=== PATIENT | female | born 1940 | race Caucasian/White ===

== ENCOUNTER → 2017-04-12 | Outpatient (CLI) | payer MEDICARE, BC ==
--- NOTE | 2017-04-12 16:54 | BD ---
EXAMINATION TYPE: MG DEXA axial skeleton. DATE OF EXAM: 04/12/2017 COMPARISON: NONE CLINICAL HISTORY: 76-year-old female osteoporosis Height: 5 FT 2 IN Weight: 174 FRAX RISK QUESTIONS: Alcohol (3 or more units per day): NO Family History (Parent hip fracture): NO Glucocorticoids (More than 3mos): NO (Ex: prednisone, prednisolone, methylprednisolone, dexamethasone, and hydrocortisone). History of Fracture in Adulthood: NO Secondary Osteoporosis: 1. Type 1 Diabetes: NO 2. Hyperthyroidism: NO 3. Menopause before 45: NO 4. Malnutrition: NO 5. Chronic liver disease: NO Rheumatoid Arthritis: NO Current Tobacco Use: NO RISK FACTORS HISTORY OF: Active: YES Postmenopausal woman: AGE 51 MEDICATIONS: Additional Medications: LIPITOR, BLOOD PRESSURE MEDS, Additional History: EXAM MEASUREMENTS: Bone mineral densitometry was performed using the [employer] System. Bone mineral density as measured about the Lumbar spine is: ----- L1-L4(G/cm2): 0.997 T Score Values are as follows: ----- L2: -2.0 ----- L3: -1.6 ----- L4: -0.8 ----- L1-L4: -1.5 Bone mineral density has: DECREASED -0.9 % since study of: 2014 Bone mineral density about the R hip (g/cm2): 0.845 Bone mineral density about the L hip (g/cm2): 0.855 T Score values are as follows: -----R Neck: -1.4 -----L Neck: -1.3 -----R Total: -1.1 -----L Total: -0.7 Bone mineral density has: DECREASED -2.9 % since study of: 2014 IMPRESSION: Osteopenia (T Score between -2.5 and -1 as noted by T score values There is slightly increased risk of fracture and the patient may be considered for treatment. Re-Screen 2-5 years. NOTE: T-SCORE=SD OF THE YOUNG ADULT MEAN.
== END | disposition home or self-care (01) ==
LOC: RADBDWWP 09:54
PROVIDERS: ATTEND Internal Medicine Geriatric Medicine
DX: M85.80 Other specified disorders of bone density and structure, unspecified site (principal)
CPT/HCPCS: 77080

== ENCOUNTER 2017-08-21 16:30 | Emergency (ER) | payer MEDICARE, BC ==
[2017-08-21] MEDS ORDERED: ASPIRIN 81 MG PO STA (16:58)
--- NOTE | 2017-08-21 17:04 | ED ---
Chest Pain HPI - General Chief Complaint: Chest Pain Stated Complaint: Chest Pain, SOB Time Seen by Provider: 08/21/17 16:39 Source: patient Mode of arrival: wheelchair Limitations: no limitations - History of Present Illness Initial Comments: This is a 76-year-old female to history of hypertension and hyperlipidemia, DT, breast cancer presents emergency department for chest pain. She states is been intermittent for the last 2-3 days. She states that it first started after working out at the gym. She states that she was working out and did multiple exercises including weightlifting and treadmill and did not have any symptoms however after she was done working out she developed some right-sided chest pain. She states that it's a dull ache. It seemed to go away however the next day she noticed the pain returned and she also had some symptoms in her back. She does not describe it as a ripping sensation. She states that she did have some associated neck numbness however no discomfort. No diaphoresis, lightheadedness, or CPAP. No nausea or vomiting area does not have a history of CAD. Had a full cardiac workup 6 years ago that was negative. Currently does not have any chest pain at all. Wanted to get evaluated because of the symptoms. - Related Data Home Medications Medication Instructions Recorded Confirmed Aspirin 81 mg PO HS 08/21/17 08/21/17 Atorvastatin Calcium [Lipitor] 10 mg PO HS 08/21/17 08/21/17 Metoprolol Tartrate [Lopressor] 25 mg PO HS 08/21/17 08/21/17 Allergies Allergy/AdvReac Type Severity Reaction Status Date / Time No Known Allergies Allergy Verified 08/21/17 17:04 Review of Systems ROS Statement: Those systems with pertinent positive or pertinent negative responses have been documented in the HPI. ROS Other: All systems not noted in ROS Statement are negative. EKG Findings - EKG Comments: EKG Findings:: EKG showing normal sinus rhythm with a 72. No abnormal ST segment changes or T-wave inversions. QTC is 407. No abnormal intervals. No ectopy. Past Medical History Past Medical History: Cancer, Hyperlipidemia, Hypertension, Pneumonia Additional Past Medical History / Comment(s): celine breast ca,nose and colon cancer History of Any Multi-Drug Resistant Organisms: None Reported Past Surgical History: Bowel Resection, Breast Surgery, Cholecystectomy, Hysterectomy Additional Past Surgical History / Comment(s): cancer removal from nose, masectomy Past Psychological History: No Psychological Hx Reported Smoking Status: Never smoker Past Alcohol Use History: None Reported Past Drug Use History: None Reported General Exam - General Exam Comments Initial Comments: Constitutional: Awake alert Appears comfortable Head: Normocephalic atraumatic Eyes: no conjunctival injection No scleral icterus EOMI Neck: No JVD Supple Heart: Regular rate rhythm normal S1-S2 no murmurs Lungs: Clear to auscultation bilaterally No wheezing No rales Abdomen: Soft nondistended nontender Extremities: Non edematous DP pulses intact Radial pulses intact Neuro: A&Ox3 No focal neurologic deficits Psych: Appropriate mood and affect Limitations: no limitations Course Vital Signs 08/21/17 08/21/17 16:34 16:54 Temperature 98.3 F Pulse Rate 89 97 Respiratory 20 20 Rate Blood Pressure 204/88 182/92 O2 Sat by Pulse 99 98 Oximetry Chest Pain MDM - MDM This is a 76-year-old female who presented to the emergency department for atypical chest pain. She describes it as a dull aching sensation in the right side of her chest. Did not radiate into the shoulders at all. She had no associated diaphoresis, nausea, or vomiting. Did not seem to be related to exercise at all. She had no symptoms while exercising a few days ago. The patient has 2 risk factors for CAD. No family history. No smoking. Her EKG was completely unremarkable. Troponin was negative. D-dimer negative. The rest her blood work is unremarkable as well. Chest x-ray negative. At this time I did recommend the patient that she stay in the hospital for further cardiac testing however she stated that she did not want to stay in the hospital. She stated that she would follow-up with Dr. Quinones as an outpatient and did not want to stay in the hospital for further cardiac testing. She does have a heart score of 3 and thus outpatient workup is reasonable however I did explain to the patient that she take significant risk leaving the hospital before getting further cardiac testing performed. She stated that she understood. She stated that she would return emergency Department if she had any worsening or changing symptoms. All questions were answered. Disposition Clinical Impression: Chest pain Disposition: HOME SELF-CARE Condition: Stable Instructions: Chest Pain (ED) Referrals: Paolo Quinones MD [Primary Care Provider] - 1-2 days
[2017-08-21 17:16] LABS: Basophils % (A) 1 %; Eosinophils # (A) 0.1 k/uL (0-0.7); Eosinophils % (A) 2 %; HCT 46.7 % (34.0-46.0); HGB 15.6 gm/dL (11.4-16.0); Lymphocytes # (A) 2.9 k/uL (1.0-4.8); Lymphocytes % (A) 36 %; MCHC 33.4 g/dL (31.0-37.0); Mean Platelet Volume 8.4; Monocytes # (A) 0.5 k/uL (0-1.0); Monocytes % (A) 6 %; Neutrophils # (A) 4.4 k/uL (1.3-7.7); Neutrophils % (A) 54 %; Platelet Count 240 k/uL (150-450); RBC 5.18 m/uL (3.80-5.40); RDW 12.9 % (11.5-15.5)
[2017-08-21 17:30] LABS: Albumin 4.2 g/dL (3.5-5.0); Calcium 10.3 mg/dL (8.4-10.2); Potassium 4.1 mmol/L (3.5-5.1); Total Bilirubin 0.7 mg/dL (0.2-1.3); Total Protein 7.1 g/dL (6.3-8.2)
[2017-08-21 17:34] LABS: Partial Thromboplastin Time 21.6 sec (22.0-30.0); Prothrombin Time 9.9 sec (9.0-12.0)
--- NOTE | 2017-08-21 17:34 | XR ---
EXAMINATION TYPE: XR chest 2V DATE OF EXAM: 08/21/2017 COMPARISON: 03/15/2013 HISTORY: Chest pain TECHNIQUE: Frontal and lateral views of the chest are obtained. FINDINGS: There is no heart failure nor confluent pneumonic infiltrate. Thoracic aorta is atheromato us. Bony thorax is intact. There are chest leads. IMPRESSION: No active cardiopulmonary disease. Normal heart. No change.
[2017-08-21 17:41] LABS: Creatine Kinase MB 1.1 ng/mL (0.0-2.4); Troponin I <0.012 ng/mL (0.000-0.034)
[2017-08-21 18:41] VITALS: BP 175/81; PULSE 65; RESP 18; TEMP 98.7
== END 2017-08-21 18:37 | disposition home or self-care (01) ==
LOC: EC 16:30
DX: R07.89 Other chest pain (principal); R20.0 Anesthesia of skin; E78.5 Hyperlipidemia, unspecified; I10 Essential (primary) hypertension; Z85.3 Personal history of malignant neoplasm of breast; Z85.038 Personal history of other malignant neoplasm of large intestine; Z85.89 Personal history of malignant neoplasm of other organs and systems; Z79.82 Long term (current) use of aspirin; Z79.899 Other long term (current) drug therapy
CPT/HCPCS: 36415; 71046; 80053; 82553; 84484; 85025; 85379; 85610; 85730; 93005; 99285

== ENCOUNTER → 2019-01-13 | Outpatient (CLI) | payer MEDICARE, BC ==
--- NOTE | 2019-01-13 13:52 | XR ---
EXAMINATION TYPE: XR chest 2V DATE OF EXAM: 01/13/2019 COMPARISON: Prior chest x-ray 08/21/2017 HISTORY: Cough TECHNIQUE: Frontal and lateral views of the chest are obtained. FINDINGS: There is no focal air space opacity, pleural effusion, or pneumothorax seen. The cardiac silhouette size is within normal limits. There are nena, metallic densities over the bilateral br easts as on prior. Aorta is dense. There is bronchial wall thickening. The osseous structures are int act. IMPRESSION: Correlate for bronchitis, reactive airways disease, follow-up as indicated.
== END | disposition home or self-care (01) ==
LOC: RADXRMAIN 13:04
PROVIDERS: ATTEND Internal Medicine Geriatric Medicine
DX: R05 Cough (principal)
CPT/HCPCS: 71046

== ENCOUNTER → 2019-01-31 | Outpatient (CLI) | payer MEDICARE, BC ==
--- NOTE | 2019-02-01 05:23 | CT ---
EXAMINATION TYPE: CT chest w con DATE OF EXAM: 01/31/2019 COMPARISON: 01/12/2012 and radiograph 01/13/2019 HISTORY: 78-year-old female Cough x4 months. Hx of breast/colon CA TECHNIQUE: Contiguous axial scanning of the chest after the administration of 100 mL of Isovue 300. Coronal/sagittal reconstructions performed. CT DLP: 388.5mGycm. Automatic exposure control utilized for a dose reduction. FINDINGS: Heart upper limits of normal in size without pericardial effusion. Scattered mild coronary vessel montrell cifications are present. Aorta normal caliber with conventional arch vessel branching anatomy and mild atherosclerotic arch ca lcifications. A large caliber to the main right and left pulmonary arteries and 2.9 and 2.6 cm, respectively, sugge sting underlying pulmonary arterial hypertension. No thoracic lymphadenopathy by CT size criteria. Some surgical clips at the left axilla and posterior left breast. Evaluation of the lungs shows a 4 mm subpleural pulmonary nodule peripheral right mid to lower lung, axial image 29, not seen previously and can be reassessed in 6-12 months. Strandy atelectasis or scar ring peripheral left base. No consolidation or pleural effusion. Visualized upper abdomen shows left renal cysts measuring up to 5.6 and 3.7 cm a tiny anterior splenu le. Bones: No osseous destructive process. IMPRESSION: 1. Strandy atelectasis or scarring at the peripheral left base. 2. Possible underlying pulmonary arterial hypertension. Clinically correlate. 3. 4 mm peripheral right mid to lower lung subpleural pulmonary nodule not seen previously in 2011. T his can be reassessed in 6-12 months. 4. Left renal cysts measuring up to 5.6 cm partially visualized.
== END | disposition home or self-care (01) ==
LOC: RADCTMAIN 16:16
PROVIDERS: ATTEND Internal Medicine Geriatric Medicine
DX: J40 Bronchitis, not specified as acute or chronic (principal)
CPT/HCPCS: 82565; 84520; 71260; 36415; Q9967

== ENCOUNTER → 2019-02-16 | Outpatient (CLI) | payer MEDICARE, BC ==
--- NOTE | 2019-02-17 10:59 | ECHOF ---
Referral Reason:I27.20 Pulmonary HTN MEASUREMENTS -------- HEIGHT: 154.9 cm WEIGHT: 79.8 kg BP: RVIDd: 2.0 cm (< 3.3) IVSd: 1.3 cm (0.6 - 1.1) LVIDd: 3.9 cm (3.9 - 5.3) LVPWd: 1.2 cm (0.6 - 1.1) IVSs: 1.6 cm LVIDs: 2.8 cm LVPWs: 1.3 cm LA Diam: 3.6 cm (2.7 - 3.8) LAESV Index (A-L): 24.09 ml/m Ao Diam: 2.5 cm (2.0 - 3.7) AV Cusp: 1.7 cm (1.5 - 2.6) LA Diam: 3.6 cm (2.7 - 3.8) MV EXCURSION: 12.842 mm (> 18.000) MV EF SLOPE: 52 mm/s (70 - 150) EPSS: 0.2 cm MV E Jt: 0.43 m/s MV DecT: 290 ms MV A Jt: 0.91 m/s MV E/A Ratio: 0.47 RAP: 5.00 mmHg RVSP: 31.63 mmHg FINDINGS -------- Sinus rhythm. This was a technically adequate study. The left ventricular size is normal. There is mild concentric left ventricular hypertrophy. Overa ll left ventricular systolic function is normal with, an EF between 55 - 60 %. The diastolic fillin g pattern is normal for the age of the patient 5.78. The right ventricle is normal in size. The left atrial size is normal. The right atrial size is normal. The aortic valve is trileaflet, and appears structurally normal. No aortic stenosis or regurgitation. Mild mitral annular calcification present. Mild mitral regurgitation is present. Mild tricuspid regurgitation present. Right ventricular systolic pressure is normal at < 35 mmHg. The right ventricular systolic pressure, as measured by Doppler, is 31.63mmHg. There is no pulmonic regurgitation present. The aortic root size is normal. Echo free space represents a pericardial fat pad. CONCLUSIONS -------- 1. Sinus rhythm. 2. This was a technically adequate study. 3. The left ventricular size is normal. 4. There is mild concentric left ventricular hypertrophy. 5. Overall left ventricular systolic function is normal with, an EF between 55 - 60 %. 6. The diastolic filling pattern is normal for the age of the patient 5.78 7. The left atrial size is normal. 8. The aortic valve is trileaflet, and appears structurally normal. No aortic stenosis or regurgitati on. 9. Mild mitral annular calcification present. 10. Mild mitral regurgitation is present. 11. Mild tricuspid regurgitation present. 12. Right ventricular systolic pressure is normal at < 35 mmHg. 13. There is no pulmonic regurgitation present. 14. The aortic root size is normal. 15. Echo free space represents a pericardial fat pad. TRANSPORT CONDUCTOR: Ramya Marie RDCS
== END | disposition home or self-care (01) ==
LOC: RADECHMAIN 15:31
PROVIDERS: ATTEND Internal Medicine Geriatric Medicine
DX: I08.1 Rheumatic disorders of both mitral and tricuspid valves (principal); I27.20 Pulmonary hypertension, unspecified
CPT/HCPCS: 93306

== ENCOUNTER → 2021-02-28 | Outpatient (CLI) | payer MEDICARE, BC ==
--- NOTE | 2021-02-28 16:24 | XR ---
EXAMINATION TYPE: XR chest 2V DATE OF EXAM: 02/28/2021 COMPARISON: Chest x-ray 01/13/2019 HISTORY: RO5 TECHNIQUE: Frontal and lateral views of the chest are obtained. FINDINGS: There is no focal air space opacity, pleural effusion, or pneumothorax seen. The cardiac silhouette size is within normal limits. The patient is rotated. Aorta is dense. Surgical clips and nena are present in the left breast and right breast. The osseous structures are intact. IMPRESSION: No acute cardiopulmonary process.
== END | disposition home or self-care (01) ==
LOC: RADXRMAIN 13:13
PROVIDERS: ATTEND Internal Medicine Geriatric Medicine
DX: R05 Cough (principal)
CPT/HCPCS: 71046

== ENCOUNTER 2021-09-25 12:04 | Emergency (ER) | payer MEDICARE, BC ==
[2021-09-25 12:22] VITALS: TEMP 97.6
--- NOTE | 2021-09-25 13:02 | ED ---
General Adult HPI - General Chief complaint: Shortness of Breath Stated complaint: SOB Time Seen by Provider: 09/25/21 12:20 Source: patient, RN notes reviewed, old records reviewed Mode of arrival: ambulatory Limitations: no limitations - History of Present Illness Initial comments: This is a 80-year-old female presents emergency Department complaining of shortness of breath since Wednesday. Patient states she also feels tired and has had diarrhea since Wednesday. Patient states she get the cold vaccine however she did not get any boosters. Patient states she's never had cold. Patient denies any chest pain or palpitations. Patient denies any significant coughing. Patient denies any abdominal pain patient denies nausea vomiting per patient states she's had which she believes to be a fever and had chills but she states she's never taken her temperature. Patient denies any headache patient denies any numbness weakness. Patient denies any lightheadedness or dizziness. - Related Data Home Medications Medication Instructions Recorded Confirmed Atorvastatin Calcium [Lipitor] 10 mg PO HS 08/21/17 09/25/21 Metoprolol Tartrate [Lopressor] 25 mg PO BID 08/21/17 09/25/21 Rivastigmine Tartrate [Exelon] 3 mg PO BID 09/25/21 09/25/21 Previous Rx's Medication Instructions Recorded Dexamethasone [Decadron] 6 mg PO DAILY #5 tablet 09/25/21 Allergies Allergy/AdvReac Type Severity Reaction Status Date / Time No Known Allergies Allergy Verified 09/25/21 13:45 Review of Systems ROS Statement: Those systems with pertinent positive or pertinent negative responses have been documented in the HPI. ROS Other: All systems not noted in ROS Statement are negative. Past Medical History Past Medical History: Cancer, Hyperlipidemia, Hypertension, Pneumonia Additional Past Medical History / Comment(s): celine breast ca,nose and colon cancer History of Any Multi-Drug Resistant Organisms: None Reported Past Surgical History: Bowel Resection, Breast Surgery, Cholecystectomy, Hysterectomy Additional Past Surgical History / Comment(s): cancer removal from nose, masectomy Past Psychological History: No Psychological Hx Reported Past Alcohol Use History: None Reported Past Drug Use History: None Reported General Exam - General Exam Comments Initial Comments: GENERAL: Patient is well-developed and well-nourished. Patient is nontoxic and well- hydrated and is in mild distress. ENT: Neck is soft and supple. No significant lymphadenopathy is noted. Oropharynx is clear. Moist mucous membranes. Neck has full range of motion without eliciting any pain. EYES: The sclera were anicteric and conjunctiva were pink and moist. Extraocular movements were intact and pupils were equal round and reactive to light. Eyelids were unremarkable. PULMONARY: Unlabored respirations. Good breath sounds bilaterally. Patient has crackles in both bases. CARDIOVASCULAR: There is a regular rate and rhythm without any murmurs gallops or rubs. ABDOMEN: Soft and nontender with normal bowel sounds. SKIN: Skin is clear with no lesions or rashes and otherwise unremarkable. NEUROLOGIC: Patient is alert and oriented x3. Cranial nerves II through XII are grossly intact. Motor and sensory are also intact. Normal speech, volume and content. Symmetrical smile. MUSCULOSKELETAL: Normal extremities with adequate strength and full range of motion. LYMPHATICS: No significant lymphadenopathy is noted PSYCHIATRIC: Normal psychiatric evaluation. Limitations: no limitations Course Vital Signs 09/25/21 09/25/21 09/25/21 12:18 12:21 12:27 Temperature 97.6 F Pulse Rate 106 H Respiratory 20 16 Rate Blood Pressure 146/69 O2 Sat by Pulse 87 L 91 L Oximetry 09/25/21 13:21 Temperature Pulse Rate 92 Respiratory 16 Rate Blood Pressure 131/66 O2 Sat by Pulse 97 Oximetry Medical Decision Making - Medical Decision Making EKG shows sinus rhythm at a rate of 84 bpm PA interval 116 QRS is 84 QT interval 07/27/1989 QTC is 410. Patient's EKG shows no ST segment elevation or depression. Chest x-ray shows bilateral infiltrates consistent with COVID pneumonia. Patient did have a COVID positive test. Patient will get monoclonal antibodies emergency department. Sent home on steroids. - Lab Data Result diagrams: 09/25/21 13:12 09/25/21 13:12 Lab Results 09/25/21 09/25/21 09/25/21 Range/Units 12:28 12:28 13:12 WBC 7.0 (3.8-10.6) k/uL RBC 4.45 (3.80-5.40) m/uL Hgb 13.3 (11.4-16.0) gm/dL Hct 40.8 (34.0-46.0) % MCV 91.7 (80.0-100.0) fL MCH 29.8 (25.0-35.0) pg MCHC 32.5 (31.0-37.0) g/dL RDW 12.3 (11.5-15.5) % Plt Count 273 (150-450) k/uL MPV 8.6 Neutrophils % 77 % Lymphocytes % 15 % Monocytes % 5 % Eosinophils % 1 % Basophils % 1 % Neutrophils # 5.4 (1.3-7.7) k/uL Lymphocytes # 1.0 (1.0-4.8) k/uL Monocytes # 0.3 (0-1.0) k/uL Eosinophils # 0.1 (0-0.7) k/uL Basophils # 0.1 (0-0.2) k/uL Sodium (137-145) mmol/L Potassium (3.5-5.1) mmol/L Chloride (98-107) mmol/L Carbon Dioxide (22-30) mmol/L Anion Gap mmol/L BUN (7-17) mg/dL Creatinine (0.52-1.04) mg/dL Est GFR (CKD-EPI)AfAm (>60 ml/min/1.73 sqM) Est GFR (CKD-EPI)NonAf (>60 ml/min/1.73 sqM) Glucose (74-99) mg/dL Calcium (8.4-10.2) mg/dL Magnesium (1.6-2.3) mg/dL Total Bilirubin (0.2-1.3) mg/dL AST (14-36) U/L ALT (4-34) U/L Alkaline Phosphatase (38-126) U/L Troponin I (0.000-0.034) ng/mL NT-Pro-B Natriuret Pep pg/mL Total Protein (6.3-8.2) g/dL Albumin (3.5-5.0) g/dL Coronavirus (PCR) Detected A (Not Detectd) Influenza Type A RNA Not Detected (Not Detectd) Influenza Type B (PCR) Not Detected (Not Detectd) 09/25/21 09/25/21 09/25/21 Range/Units 13:12 13:12 13:12 WBC (3.8-10.6) k/uL RBC (3.80-5.40) m/uL Hgb (11.4-16.0) gm/dL Hct (34.0-46.0) % MCV (80.0-100.0) fL MCH (25.0-35.0) pg MCHC (31.0-37.0) g/dL RDW (11.5-15.5) % Plt Count (150-450) k/uL MPV Neutrophils % % Lymphocytes % % Monocytes % % Eosinophils % % Basophils % % Neutrophils # (1.3-7.7) k/uL Lymphocytes # (1.0-4.8) k/uL Monocytes # (0-1.0) k/uL Eosinophils # (0-0.7) k/uL Basophils # (0-0.2) k/uL Sodium 139 (137-145) mmol/L Potassium 3.5 (3.5-5.1) mmol/L Chloride 104 (98-107) mmol/L Carbon Dioxide 27 (22-30) mmol/L Anion Gap 8 mmol/L BUN 13 (7-17) mg/dL Creatinine 0.65 (0.52-1.04) mg/dL Est GFR (CKD-EPI)AfAm >90 (>60 ml/min/1.73 sqM) Est GFR (CKD-EPI)NonAf 86 (>60 ml/min/1.73 sqM) Glucose 128 H (74-99) mg/dL Calcium 8.9 (8.4-10.2) mg/dL Magnesium 2.0 (1.6-2.3) mg/dL Total Bilirubin 0.7 (0.2-1.3) mg/dL AST 45 H (14-36) U/L ALT 47 H (4-34) U/L Alkaline Phosphatase 96 (38-126) U/L Troponin I <0.012 (0.000-0.034) ng/mL NT-Pro-B Natriuret Pep 240 pg/mL Total Protein 6.3 (6.3-8.2) g/dL Albumin 3.2 L (3.5-5.0) g/dL Coronavirus (PCR) (Not Detectd) Influenza Type A RNA (Not Detectd) Influenza Type B (PCR) (Not Detectd) Disposition Clinical Impression: Pneumonia due to COVID-19 virus Disposition: HOME SELF-CARE Condition: Good Instructions (If sedation given, give patient instructions): SARS-CoV-2 (By injection), COVID-19 (Coronavirus Disease 2019) (ED) Prescriptions: Dexamethasone [Decadron] 6 mg PO DAILY #5 tablet Is patient prescribed a controlled substance at d/c from ED?: No Referrals: Paolo Quinones MD [Primary Care Provider] - 1-2 days Time of Disposition: 14:39
--- NOTE | 2021-09-25 13:26 | XR ---
EXAMINATION TYPE: XR chest 2V DATE OF EXAM: 09/25/2021 COMPARISON: 02/28/2021 TECHNIQUE: PA and lateral views submitted. HISTORY: Shortness of breath FINDINGS: Heart is enlarged and there is bilateral lower lobe infiltrate. No overt failure. No pleural effusion . Surgical nena or clips are seen overlying both breasts. No pneumothorax. Atherosclerotic changes aorta with degenerative change of the spine and diffuse osteopenia. IMPRESSION: 1. COPD correlate for bilateral lower lobe infiltrate\pneumonia.
[2021-09-25 13:51] LABS: Basophils # (A) 0.1 k/uL (0-0.2); Basophils % (A) 1 %; Eosinophils # (A) 0.1 k/uL (0-0.7); Eosinophils % (A) 1 %; HCT 40.8 % (34.0-46.0); HGB 13.3 gm/dL (11.4-16.0); Lymphocytes % (A) 15 %; MCH 29.8 pg (25.0-35.0); MCHC 32.5 g/dL (31.0-37.0); MCV 91.7 fL (80.0-100.0); Mean Platelet Volume 8.6; Monocytes # (A) 0.3 k/uL (0-1.0); Monocytes % (A) 5 %; Neutrophils # (A) 5.4 k/uL (1.3-7.7); Neutrophils % (A) 77 %; Platelet Count 273 k/uL (150-450); RBC 4.45 m/uL (3.80-5.40); RDW 12.3 % (11.5-15.5)
[2021-09-25 14:04] LABS: ALT 47 U/L (4-34); AST 45 U/L (14-36); African American GFR (CKD) >90 (>60 ml/min/1.73 sqM); Albumin 3.2 g/dL (3.5-5.0); Alkaline Phosphatase 96 U/L (38-126); Anion Gap 8 mmol/L; Blood Urea Nitrogen 13 mg/dL (7-17); Calcium 8.9 mg/dL (8.4-10.2); Carbon Dioxide 27 mmol/L (22-30); Chloride 104 mmol/L (98-107); Glucose 128 mg/dL (74-99); Non-African American GFR(CKD) 86 (>60 ml/min/1.73 sqM); Potassium 3.5 mmol/L (3.5-5.1); Sodium 139 mmol/L (137-145); Total Bilirubin 0.7 mg/dL (0.2-1.3); Total Protein 6.3 g/dL (6.3-8.2)
[2021-09-25] MEDS ORDERED: BEBTELOVIMAB (EUA) 175 MG/2 ML VIAL IV ONE (14:15)
[2021-09-25] MEDS ORDERED: dexAMETHasone 2 MG TAB PO STA (14:25)
[2021-09-25 16:07] VITALS: BP 117/68; PULSE 82; RESP 18
== END 2021-09-25 16:07 | disposition home or self-care (01) ==
LOC: EC 12:04
DX: U07.1 COVID-19 (principal); J12.82 Pneumonia due to coronavirus disease 2019; I10 Essential (primary) hypertension; E78.5 Hyperlipidemia, unspecified; Z79.899 Other long term (current) drug therapy
CPT/HCPCS: 36415; 93005; 83880; 80053; 83735; 84484; 85025; 87502; 87635; 71046; 99285; J8540; Q0222

== ENCOUNTER 2021-10-30 20:07 | Emergency (ER) | payer MEDICARE, BC ==
[2021-10-30 20:27] VITALS: TEMP 98
[2021-10-30 21:14] LABS: ALT 19 U/L (4-34); AST 34 U/L (14-36); African American GFR (CKD) >90 (>60 ml/min/1.73 sqM); Alkaline Phosphatase 62 U/L (38-126); Anion Gap 6 mmol/L; Blood Urea Nitrogen 11 mg/dL (7-17); Calcium 9.3 mg/dL (8.4-10.2); Carbon Dioxide 27 mmol/L (22-30); Chloride 104 mmol/L (98-107); Glucose 162 mg/dL (74-99); Magnesium 2.1 mg/dL (1.6-2.3); Non-African American GFR(CKD) 85 (>60 ml/min/1.73 sqM); Potassium 4.3 mmol/L (3.5-5.1); Sodium 137 mmol/L (137-145); Total Bilirubin 0.6 mg/dL (0.2-1.3); Total Protein 6.7 g/dL (6.3-8.2)
[2021-10-30 21:15] LABS: INR 0.9 (<1.2); Partial Thromboplastin Time 22.8 sec (22.0-30.0)
[2021-10-30 21:16] LABS: Basophils % (A) 1 %; Eosinophils # (A) 0.2 k/uL (0-0.7); Eosinophils % (A) 3 %; HCT 46.2 % (34.0-46.0); HGB 14.5 gm/dL (11.4-16.0); Lymphocytes % (A) 24 %; MCH 29.6 pg (25.0-35.0); MCHC 31.4 g/dL (31.0-37.0); MCV 94.4 fL (80.0-100.0); Mean Platelet Volume 8.9; Monocytes # (A) 0.4 k/uL (0-1.0); Monocytes % (A) 5 %; Neutrophils # (A) 5.3 k/uL (1.3-7.7); Neutrophils % (A) 65 %; Platelet Count 227 k/uL (150-450); RBC 4.89 m/uL (3.80-5.40); RDW 13.6 % (11.5-15.5); WBC 8.1 k/uL (3.8-10.6)
--- NOTE | 2021-10-30 21:58 | ED ---
General Adult HPI - General Chief complaint: Chest Pain Stated complaint: SOB,Dizzy and weak Time Seen by Provider: 10/30/21 21:45 Source: patient, family Mode of arrival: wheelchair Limitations: no limitations - History of Present Illness Initial comments: 80-year-old female presents emergency Department with worsening shortness of breath over the past several months. States that when she gets up and ambulates she becomes extremely short of breath. She has not followed up with her primary care doctor in regards to this. States that today she felt weak on her legs. They gave out and she ended up sustaining a fall. Denies hitting her head or l osing consciousness. Denies any injuries. Patient concerned for influenza or Covid. She did take a Covid test at home and it was negative. He denies any urinary complaints. No changes in her bowel habits. Denies fevers. She denies any chest pain. No history of coronary disease. No other alleviating, precipitating or modifying factors - Related Data Home Medications Medication Instructions Recorded Confirmed Atorvastatin Calcium [Lipitor] 10 mg PO HS 08/21/17 10/30/21 Metoprolol Tartrate [Lopressor] 25 mg PO BID 08/21/17 10/30/21 Cholecalciferol [Vitamin D3 (25 25 mcg PO DAILY 10/30/21 10/30/21 Mcg = 1000 Iu)] Multivitamins, Thera [Multivitamin 1 tab PO DAILY 10/30/21 10/30/21 (formulary)] Rivastigmine Tartrate 4.5 mg PO BID-W/MEALS 10/30/21 10/30/21 Rosuvastatin Calcium 20 mg PO DAILY 10/30/21 10/30/21 Allergies Allergy/AdvReac Type Severity Reaction Status Date / Time No Known Allergies Allergy Verified 10/30/21 22:55 Review of Systems ROS Statement: Those systems with pertinent positive or pertinent negative responses have been documented in the HPI. ROS Other: All systems not noted in ROS Statement are negative. Past Medical History Past Medical History: Cancer, Hyperlipidemia, Hypertension, Pneumonia Additional Past Medical History / Comment(s): celine breast ca,nose and colon cancer History of Any Multi-Drug Resistant Organisms: None Reported Past Surgical History: Bowel Resection, Breast Surgery, Cholecystectomy, Hysterectomy Additional Past Surgical History / Comment(s): cancer removal from nose, masectomy Past Psychological History: No Psychological Hx Reported Smoking Status: Former smoker Past Alcohol Use History: None Reported Past Drug Use History: None Reported General Exam Limitations: no limitations Course Vital Signs 10/30/21 10/30/21 20:24 22:33 Temperature 98 F Pulse Rate 67 66 Respiratory 16 16 Rate Blood Pressure 166/84 150/78 O2 Sat by Pulse 98 97 Oximetry EKG Findings - EKG Comments: EKG Findings:: EKG demonstrates a sinus rhythm with occasional supraventricular premature complexes. Rate of 72. SC interval 136. QRS 90. QTC of 431. Inverted T-wave in lead 3. No acute ST segment elevations. Medical Decision Making - Medical Decision Making The patient is placed in room 19. A thorough history and physical exam was performed. Laboratory studies are conducted and reviewed. Patient is swabbed for Covid and influenza. CTA of the chest is performed as the patient does have a previous history of DVT in the remote past. CT demonstrates pulmonary fibrosis however no signs of PE. I did request a urine sample however the patient does not feel as if she has a urinary tract infection. Patient will be discharged home at this time. Instructed to follow up with pulmonology for further evaluation for pulmonary fibrosis. She has no pain with her primary care doctor next week. Return for any new or worsening symptoms prior patient was discharged home in stable condition - Lab Data Result diagrams: 10/30/21 20:38 10/30/21 20:38 Lab Results 10/30/21 10/30/21 10/30/21 Range/Units 20:38 20:38 20:38 WBC 8.1 (3.8-10.6) k/uL RBC 4.89 (3.80-5.40) m/uL Hgb 14.5 (11.4-16.0) gm/dL Hct 46.2 H (34.0-46.0) % MCV 94.4 (80.0-100.0) fL MCH 29.6 (25.0-35.0) pg MCHC 31.4 (31.0-37.0) g/dL RDW 13.6 (11.5-15.5) % Plt Count 227 (150-450) k/uL MPV 8.9 Neutrophils % 65 % Lymphocytes % 24 % Monocytes % 5 % Eosinophils % 3 % Basophils % 1 % Neutrophils # 5.3 (1.3-7.7) k/uL Lymphocytes # 2.0 (1.0-4.8) k/uL Monocytes # 0.4 (0-1.0) k/uL Eosinophils # 0.2 (0-0.7) k/uL Basophils # 0.0 (0-0.2) k/uL PT 10.0 (9.0-12.0) sec INR 0.9 (<1.2) APTT 22.8 (22.0-30.0) sec Sodium 137 (137-145) mmol/L Potassium 4.3 (3.5-5.1) mmol/L Chloride 104 (98-107) mmol/L Carbon Dioxide 27 (22-30) mmol/L Anion Gap 6 mmol/L BUN 11 (7-17) mg/dL Creatinine 0.67 (0.52-1.04) mg/dL Est GFR (CKD-EPI)AfAm >90 (>60 ml/min/1.73 sqM) Est GFR (CKD-EPI)NonAf 85 (>60 ml/min/1.73 sqM) Glucose 162 H (74-99) mg/dL Calcium 9.3 (8.4-10.2) mg/dL Magnesium 2.1 (1.6-2.3) mg/dL Total Bilirubin 0.6 (0.2-1.3) mg/dL AST 34 (14-36) U/L ALT 19 (4-34) U/L Alkaline Phosphatase 62 (38-126) U/L Troponin I (0.000-0.034) ng/mL Total Protein 6.7 (6.3-8.2) g/dL Albumin 4.0 (3.5-5.0) g/dL 10/30/21 Range/Units 20:38 WBC (3.8-10.6) k/uL RBC (3.80-5.40) m/uL Hgb (11.4-16.0) gm/dL Hct (34.0-46.0) % MCV (80.0-100.0) fL MCH (25.0-35.0) pg MCHC (31.0-37.0) g/dL RDW (11.5-15.5) % Plt Count (150-450) k/uL MPV Neutrophils % % Lymphocytes % % Monocytes % % Eosinophils % % Basophils % % Neutrophils # (1.3-7.7) k/uL Lymphocytes # (1.0-4.8) k/uL Monocytes # (0-1.0) k/uL Eosinophils # (0-0.7) k/uL Basophils # (0-0.2) k/uL PT (9.0-12.0) sec INR (<1.2) APTT (22.0-30.0) sec Sodium (137-145) mmol/L Potassium (3.5-5.1) mmol/L Chloride (98-107) mmol/L Carbon Dioxide (22-30) mmol/L Anion Gap mmol/L BUN (7-17) mg/dL Creatinine (0.52-1.04) mg/dL Est GFR (CKD-EPI)AfAm (>60 ml/min/1.73 sqM) Est GFR (CKD-EPI)NonAf (>60 ml/min/1.73 sqM) Glucose (74-99) mg/dL Calcium (8.4-10.2) mg/dL Magnesium (1.6-2.3) mg/dL Total Bilirubin (0.2-1.3) mg/dL AST (14-36) U/L ALT (4-34) U/L Alkaline Phosphatase (38-126) U/L Troponin I <0.012 (0.000-0.034) ng/mL Total Protein (6.3-8.2) g/dL Albumin (3.5-5.0) g/dL Disposition Clinical Impression: Weakness, Fall, Chronic respiratory insufficiency Disposition: HOME SELF-CARE Condition: Stable Instructions (If sedation given, give patient instructions): Shortness of Breath (ED) Additional Instructions: Please follow-up with primary care doctor within 2-4 days. I do think you need pulmonary function testing. Return for any new or worsening symptoms. I will call you tomorrow in regards to your swab results Is patient prescribed a controlled substance at d/c from ED?: No Referrals: Paolo Quinones MD [Primary Care Provider] - 1-2 days Time of Disposition: 23:14
--- NOTE | 2021-10-30 22:01 | XR ---
EXAMINATION: XR chest 2V DATE AND TIME: 10/30/2021 9:52 PM CLINICAL INDICATION: PHH; Chest Pain TECHNIQUE: Departmental protocol COMPARISON: 09/25/2021 FINDINGS: The lungs currently appear to be clear. The pleural spaces are negative. The cardiac silhouette is not enlarged. The remainder of the mediastinal silhouette is unremarkable. The skeletal structures and soft tissues are negative for acute findings. IMPRESSION: No definite acute process.
--- NOTE | 2021-10-30 22:19 | CT ---
EXAMINATION TYPE: CT chest angio for PE DATE OF EXAM: 10/30/2021 COMPARISON: 01/31/2019 HISTORY: chest pain and SOB CT DLP: 319.5 mGycm Automated exposure control for dose reduction was used. CONTRAST: Performed with IV Contrast, patient injected with 80ml mL of Isovue 370. There are Three-D postprocessed images. There is minimal subpleural interstitial density in the lung griffith. No pulmonary consolidation. Hear t size is fairly normal. No pericardial effusion. There are no hilar masses. No mediastinal adenopath y. There is normal contrast opacification of the pulmonary arteries. No filling defect. The thoracic spine is intact. Sternum is intact. The ribs are intact. IMPRESSION: No evidence of pulmonary embolism. Minimal increased pulmonary interstitial density could be some mil d fibrosis. This appears new compared to old exam. No suspicious pulmonary mass.
[2021-10-30 23:27] VITALS: BP 164/89; PULSE 67; RESP 18
== END 2021-10-30 23:26 | disposition home or self-care (01) ==
LOC: EC 20:07
DX: R53.1 Weakness (principal); R06.89 Other abnormalities of breathing; I10 Essential (primary) hypertension; E78.5 Hyperlipidemia, unspecified; Z87.891 Personal history of nicotine dependence; Z79.899 Other long term (current) drug therapy; W19.XXXA Unspecified fall, initial encounter
CPT/HCPCS: 36415; 93005; 80053; 83735; 84484; 85025; 85610; 85730; 87502; 87635; 71046; 71275; 99285; Q9967

== ENCOUNTER → 2021-11-06 | Outpatient (CLI) | payer MEDICARE, BC ==
--- NOTE | 2021-11-06 16:42 | BD ---
EXAMINATION TYPE: Axial Bone Density DATE OF EXAM: 11/06/2021 COMPARISON: 2017 CLINICAL HISTORY: 80 years year old Female. ICD-10 CODE: M81.0 OSTEOPOROSIS Height: 61 Weight: 157.4 FRAX RISK QUESTIONS: Alcohol (3 or more units per day): NO Family History (Parent hip fracture): NO Glucocorticoids (More than 3mos): NO History of Fracture in Adulthood: NO Secondary Osteoporosis: 1. Type 1 Diabetes: NO 2. Hyperthyroidism: NO 3. Menopause before 45: YES 4. Malnutrition: NO 5. Chronic liver disease: NO Rheumatoid Arthritis: NO Current Tobacco Use: NO RISK FACTORS HISTORY OF: Hip Fracture (Right/Left): NO Spine Fracture: NO History of Wrist Fracture: NO Surgery to Spine/Hip(right/left)/Wrist (right/left): NO Family History of Osteoporosis: NO Active: YES Diet low in dairy products/other sources of calcium: YES Postmenopausal woman: YES Take estrogen and/or progesterone medications: NO Lost more than 2 inches in height since high school: NO Frequent falls: NO Poor Health: NO Hyperparathyroidism: NO Adrenal Insufficiency: NO MEDICATIONS: Prednisone or other steroids: NO Thyroid Medications: NO Osteoporosis Medications: NO Additional Medications: VIT D, BP MEDS, CHOLESTEROL MEDS Additional History: EXAM MEASUREMENTS: Bone mineral densitometry was performed using the [employer] System. Bone mineral density as measured about the Lumbar spine is: ----- L1-L4(G/cm2): 0.982 T Score Values are as follows: ----- L1: -2.1 ----- L2: -2.3 ----- L3: -1.3 ----- L4: -1.3 ----- L1-L4: Bone mineral density has: DECREASED 1.6 % since study of: 04/12/2017 Bone mineral density about the R hip (g/cm2): 0.825 Bone mineral density about the L hip (g/cm2): 0.816 T Score values are as follows: -----R Neck: -1.5 -----L Neck: -1.6 -----R Total: -1.2 -----L Total: -1.3 Bone mineral density has: DECREASED 5.3 % since study of: 04/12/2017 FRAX%s: The graph provided illustrates a 13.1% chance for a major osteoporotic fx and a 3.1% chance f or the hips probability for fx in 10 years time. IMPRESSION: Osteopenia (T Score between -2.5 and -1). There is slightly increased risk of fracture and the patient may be considered for treatment. Re-Screen 2-5 years. NOTE: T-SCORE=SD OF THE YOUNG ADULT MEAN.
== END | disposition home or self-care (01) ==
LOC: RADBDWWP 09:12
PROVIDERS: ATTEND Internal Medicine Geriatric Medicine
DX: Z13.820 Encounter for screening for osteoporosis (principal); M85.89 Other specified disorders of bone density and structure, multiple sites
CPT/HCPCS: 77080

== ENCOUNTER → 2023-08-25 | Outpatient (CLI) | payer MEDICARE, BC ==
--- NOTE | 2023-08-26 07:52 | US ---
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 TECHNIQUE: Scanned patients AOC (left groin/ LLQ) FINDINGS: There is no discrete evidence of inguinal hernia seen today. Prominent bowel loops seen. T here is a 0.7 x 0.2 x 0.8cm hypoechoic area seen at patients palpable. IMPRESSION: 1 nonspecific hypoechoic area seen at the site of clinical concern which is nonspecific. Consider further evaluation with contrast CT. No definite hernia identified.
== END | disposition home or self-care (01) ==
LOC: RADUSWWP 16:16
PROVIDERS: ATTEND Internal Medicine Geriatric Medicine
DX: K40.90 Unilateral inguinal hernia, without obstruction or gangrene, not specified as recurrent (principal)

== ENCOUNTER → 2023-09-08 | Outpatient (CLI) | payer MEDICARE, BC ==
[2023-09-08 14:07] LABS: African American GFR (CKD) 83 (>60 ml/min/1.73 sqM); Blood Urea Nitrogen 13 mg/dL (7-17); Non-African American GFR(CKD) 72 (>60 ml/min/1.73 sqM)
--- NOTE | 2023-09-12 21:55 | CT ---
EXAMINATION TYPE: CT pelvis w con DATE OF EXAM: 09/08/2023 COMPARISON: Ultrasound 08/25/2023 HISTORY: 82-year-old female R19.09 OTHER INTRA-ABDOMINAL AND PELVIC SWELLING, left groin mass, hx of colon ca TECHNIQUE: Contiguous axial scanning of the pelvis following administration of 100 ml Isovue 300 IV c ontrast. Delayed images through the bladder and coronal/sagittal reconstructions performed. CT DLP: 399.5 mGycm Automated exposure control for dose reduction was used. FINDINGS: There is marked thinning of the anterior abdominal wall musculature with coils relating to prior mesh repair. At the right lower quadrant, there is focal anterior bulging of the opacified, nonobstructed small heydi wel loops likely dissecting between the abdominal wall and mesh material. This area measures approxim ately 8.7 cm craniocaudal by 10.6 cm wide and 2.9 cm AP. No other abdominal wall hernia or suspicious mass is identified. Gassy colon with moderate stool in the right. There is a stable line from prior resection and reanast omosis of the distal sigmoid colon. Left-sided colonic diverticulosis. No pericolic inflammatory cai ge. Bladder partially distended. Uterus surgically absent. Both ovaries are visualized. No abnormal fluid collection the pelvis or pelvic lymphadenopathy. Bones: No osseous destructive process. Mild to moderate facet degenerative change lower lumbar spine. IMPRESSION: PRIOR VENTRAL ABDOMINAL WALL MESH REPAIR. THE ANTERIOR ABDOMINAL WALL MUSCULATURE IS MARKEDLY THIN AN D THERE IS SUPERIMPOSED FOCAL BULGING ANTERIORLY AT THE RIGHT LOWER QUADRANT MEASURING 10.6 X 8.7 CM. POSSIBLY REPRESENTING NONOBSTRUCTED SMALL BOWEL FORCING THEIR WAY BETWEEN CURYUNG ABDOMINAL WALL MUSC LE/FASCIA AND MESH MATERIAL.
== END | disposition home or self-care (01) ==
LOC: RADCTMAIN 13:19
PROVIDERS: ATTEND Internal Medicine Geriatric Medicine
DX: R19.09 Other intra-abdominal and pelvic swelling, mass and lump (principal); I25.10 Atherosclerotic heart disease of native coronary artery without angina pectoris
CPT/HCPCS: 82565; 84520; 72193; 36415; Q9967